=== PATIENT | female | born 1995 | race Hispanic/Latino ===

== ENCOUNTER 2017-07-03 14:33 | Emergency (ER) | payer MEDICAID, SELFPAY ==
[2017-07-03] MEDS ORDERED: AMOXicillin 250 MG CAP ONE (15:11)
== END 2017-07-03 15:21 | disposition home or self-care (01) ==
LOC: BURERS 14:33
DX: J03.90 Acute tonsillitis, unspecified (principal); F41.9 Anxiety disorder, unspecified; F32.9 Major depressive disorder, single episode, unspecified; F17.210 Nicotine dependence, cigarettes, uncomplicated
CPT/HCPCS: 99283